=== PATIENT | female | born 1970 | race Caucasian/White ===

== ENCOUNTER 2019-10-26 15:22 | Outpatient (CLI) | payer OTHER, SELFPAY ==
--- NOTE | 2019-10-26 15:37 | MM_ITS ---
WS: [id number] Bilateral screening digital mammogram, 10/26/2019 Clinical Data: SCREENING Comparison: 09/27/2018, 08/21/2016, 08/09/2015, 07/31/2014, 07/28/2013, 02/18/2012, 05/04/2009. Findings: The breast parenchymal pattern shows extreme density No spiculated masses or clustered calcifications are seen. There are no secondary signs of carcinoma. MM/[place] [id number] Impression: 1. Negative bilateral mammogram unchanged. 2. Recommend annual screening mammograms. BIRADS: 1-Negative FOLLOW UP: 1 Year Follow-up The CAD steel checker was used.
== END 2019-10-26 15:23 | disposition home or self-care (01) ==
LOC: RADSHAW 15:27
PROVIDERS: Family Provider Family Medicine; PCP Family Medicine; Visit Provider Family Medicine
DX: Z12.31 Encounter for screening mammogram for malignant neoplasm of breast (principal)
CPT/HCPCS: 77067

== ENCOUNTER 2020-11-02 15:26 | Outpatient (CLI) | payer OTHER, SELFPAY ==
--- NOTE | 2020-11-02 15:30 | MM_ITS ---
WS: [id number] BILATERAL SCREENING DIGITAL MAMMOGRAM WITH CAD HISTORY: SCREENING COMPARISON: 10/26/2019 09/27/2018 Bilateral CC and MLO views submitted. Computer aided detection analyzed. Breast composition: The breasts are heterogeneously dense, which may obscure small masses. No suspici ous masses, microcalcifications or architectural distortion. MM/[place] [id number] IMPRESSION: BI-RADS: 1-Negative FOLLOW UP: 1 Year Follow-up
== END 2020-11-02 15:27 | disposition home or self-care (01) ==
LOC: RADSHAW 15:29
PROVIDERS: PCP Family Medicine; Visit Provider Family Medicine
DX: Z12.31 Encounter for screening mammogram for malignant neoplasm of breast (principal)
CPT/HCPCS: 77067

== ENCOUNTER 2021-05-02 16:31 | Outpatient (CLI) | payer OTHER, SELFPAY ==
--- NOTE | 2021-05-02 | XR_ITS ---
WS: [id number] Right knee, 3 views, 05/02/2021 Clinical Data: UNSPECIFIED INJURY TO RIGHT LOWER LEG Comparison: None. Findings: The medial joint compartment shows narrowing and irregularity of the articular surface of the medial femoral condyle. There is spurring of the medial and lateral tibial plateaus and the lateral femoral condyle. There is irregularity of the posterior patella. There are no fractures or dislocations. Soft tissues are normal. No fractures or dislocations are present. XR/XR knee RT 3V* [id number] Impression: Moderate osteoarthritis of the right knee involving the medial joint compartmen t and posterior right patella. Kellgren-Luigi Classification: grade 3 (moderate): moderate multiple osteoph ytes, definite narrowing of joint space and some sclerosis and possible deformi ty of bone ends
== END 2021-05-02 16:32 | disposition home or self-care (01) ==
PROVIDERS: PCP Family Medicine; Visit Provider Family Medicine
DX: S89.91XA Unspecified injury of right lower leg, initial encounter (principal); X58.XXXA Exposure to other specified factors, initial encounter; M17.11 Unilateral primary osteoarthritis, right knee
CPT/HCPCS: 73562

== ENCOUNTER → 2021-06-11 13:17 | Outpatient (BNVA) | payer OTHER, SELFPAY | PROVIDERS: PCP Family Medicine; Referring Provider Family Medicine; Visit Provider Orthopaedic Surgery | DX: M25.562 Pain in left knee (principal); M25.561 Pain in right knee | CPT/HCPCS: 73560; 73565 ==

== ENCOUNTER 2022-04-03 18:57 | Outpatient (CLI) | payer OTHER, SELFPAY ==
[2022-04-03 19:23] LABS: D Dimer 1.68 ug/mIFEU (0-0.59)
== END 2022-04-03 18:58 | disposition home or self-care (01) ==
LOC: LAB 18:58
PROVIDERS: PCP Family Medicine; Visit Provider Nurse Practitioner
DX: R06.02 Shortness of breath (principal)
CPT/HCPCS: 85378

== ENCOUNTER 2022-04-03 20:49 | Emergency (ER) | payer OTHER, SELFPAY ==
--- NOTE | 2022-04-03 20:52 | USR_ITS ---
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 C/O continued pain rle, especially calf and thigh pain x 4 days. No HX dvt per PT TECHNIQUE: Imaging protocol: Real-time Duplex ultrasound of the Right Lower Extremity with 2-D lawton scale, color Doppler flow and spectral waveform analysis with image documentation. Limited exam was focused on the right lower extremity veins. COMPARISON: US pelvic with transvaginal 09/02/2017 3:42 PM FINDINGS: Right deep veins: Unremarkable. The common femoral, femoral, proximal profunda femoral and popliteal veins are patent without thrombus. Normal Doppler waveforms. Normal compressibility and/or augmentation response. Right superficial veins: Unremarkable. Saphenofemoral junction is patent without thrombus. Soft tissues: Unremarkable. US/[place] [id number] IMPRESSION: No evidence of deep vein thrombosis in the right leg.
[2022-04-03 21:04] VITALS: BP 109/70; PULSE 97; RESP 16; TEMP 37; O2SAT 99; BMI 24.6
--- NOTE | 2022-04-03 22:00 | ED_ITS ---
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 Denies any worsening proving factors. Associated symptoms: Deny chest pain, fever(s) or rash Review of Systems Const: Denies: fever(s), chills, body aches or change in appetite Eyes: Denies: blurry vision or eye discomfort ENMT: Denies: throat pain or dental pain Card: Denies: chest pain Resp: Denies: dyspnea GI: Denies: abdominal pain, nausea, vomiting or diarrhea : Denies: dysuria Musc: Reports: extremity swelling Skin/Breast: Denies: rash Neuro: Denies: headache(s) Psych: Denies: depression Rusty/Lymph: Denies: easy bruising All/Imm: Denies: urticaria PFSH ED PFSH: Medical History Asthma Chronic sinusitis Graves disease Social History Smoking and tobacco status: never smoked Physical Exam Const: COMMON NORMALS: no acute distress, patient oriented x3 and healthy appearing HENMT: COMMON NORMALS: normocephalic and atraumatic HEAD & SCALP: normocephalic and atraumatic Eye: COMMON NORMALS: Equal, round and reactive pupils present and EOMs intact bilaterally PUPIL: Yes Equal, round and reactive pupils present Neck/C-Spine: COMMON NORMALS: full ROM and supple Chest: COMMONS NORMALS: normal inspection of the chest and normal palpation of entire chest wall Resp: COMMON NORMALS: normal respiratory effort, No retractions, No use of accessory muscles and clear to auscultation bilaterally AUSCULTATION: clear to auscultation bilaterally Cardio: COMMON NORMALS: regular rate, regular rhythm and No murmurs present (Cardio) RATE: regular rate RHYTHM: regular rhythm GI: INSPECTION: Yes normal to inspection Extremity: COMMON NORMALS: full ROM NARRATIVE EXTREMITY EXAM: Swelling noted to right lower leg no erythema distal pulses intact Neuro: COMMON NORMALS: patient oriented x3, moves all extremities and no focal motor deficits Psych: COMMON NORMALS: mental status grossly normal, Normal thought process present and cooperative THOUGHT PROCESS: Normal thought process present Skin: COMMON NORMALS: no rashes or lesions noted and no wounds GENERAL SKIN EXAM: no rashes or lesions noted Course Vital Signs: Vital signs: Vital Signs Temperature 98.6 F 04/03/22 21:04 Pulse Rate 97 04/03/22 21:04 Respiratory Rate 16 04/03/22 21:04 Blood Pressure 109/70 04/03/22 21:04 Pulse Oximetry 99 04/03/22 21:04 Oxygen Delivery Me thod 04/03/22 21:04 MDM - Extremity (Nontraumatic) Medical Decision Making Patient presents with right leg swelling no signs of DVT her exam here is benign we will instruct her to wear compression stockings follow-up with her PCP and return if worsening. Lab Data Radiology Impressions Venous Duplex 04/03/22 20:52 IMPRESSION: No evidence of deep vein thrombosis in the right leg. Discharge Plan Discharge Patient Disposition: Home Clinical Impression: Right leg swelling Condition: Stable Prescriptions: No Action levothyroxine [Synthroid] 25 mcg tablet 25 mcg PO DAILY budesonide-formoterol [Symbicort] 80-4.5 mcg/actuation HFA aerosol inhaler 2 puff inhalation BID montelukast [Singulair] 10 mg tablet 10 mg PO DAILY pseudoephedrine HCl [Sudafed 12 Hour] 120 mg tablet extended release 120 mg PO BID PRN (Reason: nasal congestion) Qty: 30 0RF valacyclovir [Valtrex] 1 gram tablet 1,000 mg PO DAILY Discharge Orders: Discharge ED (Routine); Ordered 04/03/22 Ordered By: Debra Astudillo Referrals: Maddi Sharma MD [Primary Care Provider] - 1-3 days Discharge Diet: Advance as tolerated Discharge Activity: Resume usual activity Patient Instructions: Leg Edema (ED) Coding Level of Care Code ED Net Software Engineer for [employer]
[2022-04-03 22:12] VITALS: BP 136/63; PULSE 87; RESP 18; O2SAT 99
== END 2022-04-03 22:14 | disposition home or self-care (01) ==
PROVIDERS: Emergency Provider Emergency Medicine; PCP Family Medicine
DX: M79.89 Other specified soft tissue disorders (principal)
CPT/HCPCS: 93971; 99283

== ENCOUNTER 2022-07-18 15:06 | Outpatient (CLI) | payer OTHER, SELFPAY ==
--- NOTE | 2022-07-18 15:22 | MM_ITS ---
WS: [id number] Bilateral screening 3D tomosynthesis digital mammogram, 07/18/2022 Clinical Data: SCREENING Comparison: 11/02/2020, 10/26/2019, 09/27/2018, 09/15/2017, 08/21/2016, 08/09/2015, 07/31/2014, 07/28/2013, 02/18/2012, 05/04/2009. Findings: The breast parenchymal pattern shows heterogeneous density No spiculated masses or clustered calcific ations are seen. There are no secondary signs of carcinoma. MM/[place] [id number] Impression: 1. Negative bilateral mammogram unchanged. 2. Recommend annual screening mammograms. BIRADS: 1-Negative FOLLOW UP: 1 Year Follow-up The CAD clerical car checker was used.
== END 2022-07-18 15:07 | disposition home or self-care (01) ==
PROVIDERS: PCP Family Medicine; Visit Provider Family Medicine
DX: Z12.31 Encounter for screening mammogram for malignant neoplasm of breast (principal)
CPT/HCPCS: 77063; 77067

== ENCOUNTER 2023-07-29 12:41 | Outpatient (CLI) | payer OTHER, SELFPAY ==
--- NOTE | 2023-07-29 13:02 | MM_ITS ---
WS: [id number] BILATERAL 3D TOMOSYNTHESIS DIGITAL SCREENING MAMMOGRAM WITH CAD CLINICAL INFORMATION: SCREEN HISTORY: Screening mammogram. No current complaints. COMPARISON: 2021 TECHNIQUE: Bilateral CC and MLO. FINDINGS: The breast are composed of extremely dense tissue, which can limit the detection of small underlying mass lesions. No suspicious focal mass, asymmetry, calcifications, or architectural distortion. No ev idence of malignancy. IMPRESSION: MM/[place] [id number] BI-RADS: 1-Negative FOLLOW UP: 1 Year Follow-up Recommend return to annual screening mammography.
== END 2023-07-29 12:42 | disposition home or self-care (01) ==
LOC: RAD 12:41
PROVIDERS: PCP Family Medicine; Visit Provider Family Medicine
DX: Z12.31 Encounter for screening mammogram for malignant neoplasm of breast (principal)
CPT/HCPCS: 77063; 77067

== ENCOUNTER → 2024-07-18 07:33 | Outpatient (BNVA) | payer OTHER, SELFPAY | PROVIDERS: PCP Family Medicine; Visit Provider Nurse Practitioner Family | DX: R68.89 Other general symptoms and signs (principal); R50.9 Fever, unspecified | CPT/HCPCS: 87804; 87880 ==

== ENCOUNTER 2024-08-17 15:24 | Outpatient (CLI) | payer OTHER, SELFPAY ==
--- NOTE | 2024-08-17 15:27 | MM_ITS ---
WS: [id number] BILATERAL 3D TOMOSYNTHESIS DIGITAL SCREENING MAMMOGRAM WITH CAD CLINICAL INFORMATION: SCREENING HISTORY: Screening mammogram. No current complaints. COMPARISON: 2022 TECHNIQUE: Bilateral CC and MLO. FINDINGS: The breast are composed of extremely dense tissue, which can limit the detection of small underlying mass lesions. No suspicious focal mass, asymmetry, calcifications, or architectural distortion. No ev idence of malignancy. MM/MM scr tomosynthesis [id number] IMPRESSION: DENSITY: The breasts are extremely dense, which lowers the sensitivity of mammo graphy. BI-RADS: 1 - Negative FOLLOW UP: 1 Year Follow-up Recommend return to annual screening mammography.
== END 2024-08-17 15:25 | disposition home or self-care (01) ==
LOC: RAD 15:26
PROVIDERS: PCP Family Medicine; Visit Provider Family Medicine
DX: Z12.31 Encounter for screening mammogram for malignant neoplasm of breast (principal); R92.333 Mammographic heterogeneous density, bilateral breasts
CPT/HCPCS: 77063; 77067

== ENCOUNTER → 2024-09-05 09:45 | Outpatient (BNVA) | payer OTHER, SELFPAY | PROVIDERS: PCP Family Medicine; Visit Provider Nurse Practitioner Family | DX: R68.89 Other general symptoms and signs (principal); J02.9 Acute pharyngitis, unspecified | CPT/HCPCS: 87081; 87426; 87804; 87880 ==

== ENCOUNTER 2024-10-11 20:00 | Outpatient (CLI) | payer OTHER, SELFPAY | END 2024-10-11 20:01 | disposition home or self-care (01) | LOC: SLEEP 10-12 03:01 | PROVIDERS: PCP Family Medicine; Visit Provider Family Medicine | DX: G47.33 Obstructive sleep apnea (adult) (pediatric) (principal); G47.36 Sleep related hypoventilation in conditions classified elsewhere | CPT/HCPCS: 95810 ==

== ENCOUNTER 2025-04-05 14:29 | Outpatient (CLI) | payer OTHER, SELFPAY ==
--- NOTE | 2025-04-05 14:30 | CTR_ITS ---
PROCEDURE INFORMATION: Exam: CT Chest Without Contrast; Diagnostic Exam date and time: 04/05/2025 2:41 PM Age: 54 years old Clinical indication: Persistant productive cough x 9 months; Additional info: Persistent cough TECHNIQUE: Imaging protocol: Diagnostic computed tomography of the chest without contrast. Radiation optimization: All CT scans at this facility use at least one of these dose optimization techniques: automated exposure control; mA and/or kV adjustment per patient size (includes targeted exams where dose is matched to clinical indication); or iterative reconstruction. COMPARISON: CR XR chest 1V [id number] 09/22/2018 11:40 PM RADIATION DOSE METRICS: Total DLP (mGy-cm): 200.86 FINDINGS: Lungs: Minimal curvilinear atelectasis in the left lower lobe at the base. Subtle clustered micronodules are seen in the right lower lobe at the posterior base with mild bronchiectasis. Calcified pulmonary nodule in the medial right lower lobe. Pleural spaces: Unremarkable. No pneumothorax. No pleural effusion. Heart: Unremarkable. No cardiomegaly. No pericardial effusion. No coronary calcifications. Lymph nodes: AP window adenopathy measures 1.2 cm in short axis. Some calcified right hilar lymph nodes are seen. Vasculature: Unremarkable. No aortic aneurysm. Bones/joints: Unremarkable. No acute fracture. Soft tissues: Unremarkable. CT/CT chest wo con [id number] IMPRESSION: 1. Small clustered pulmonary micronodules in the right lower lobe with associated bronchiectasis, likely infectious or inflammatory in nature. 2. Mild AP window adenopathy.
== END 2025-04-05 14:30 | disposition home or self-care (01) ==
LOC: RAD 14:31
PROVIDERS: PCP Family Medicine; Visit Provider Family Medicine
DX: R05.3 Chronic cough (principal); J45.909 Unspecified asthma, uncomplicated; J98.11 Atelectasis; R91.8 Other nonspecific abnormal finding of lung field; J47.9 Bronchiectasis, uncomplicated; R59.0 Localized enlarged lymph nodes
CPT/HCPCS: 71250

== ENCOUNTER 2025-05-09 13:54 | Outpatient (CLI) | payer OTHER, SELFPAY | END 2025-05-09 13:55 | disposition home or self-care (01) | LOC: SLEEP 13:55 | PROVIDERS: PCP Family Medicine; Referring Provider Physician Assistant; Visit Provider Internal Medicine Pulmonary Disease | DX: G47.30 Sleep apnea, unspecified (principal) | CPT/HCPCS: G0399 ==

== ENCOUNTER → 2025-07-13 16:40 | Outpatient (BNVA) | payer OTHER, SELFPAY | PROVIDERS: PCP Family Medicine; Visit Provider Internal Medicine | DX: J84.9 Interstitial pulmonary disease, unspecified (principal); J84.10 Pulmonary fibrosis, unspecified; J47.9 Bronchiectasis, uncomplicated; J44.9 Chronic obstructive pulmonary disease, unspecified | CPT/HCPCS: 36415; 82103; 82784; 85025; 86038; 86431; 87070; 87205 ==